=== PATIENT | male | born 1980 | race Caucasian/White ===

== ENCOUNTER 2017-02-10 20:23 | Emergency (ER) | payer MEDICAID ==
[2017-02-10 21:27] LABS: BASOPHIL % 0.9 % (0-2); PLATELET COUNT 146 x10^3mcL (130-400)
[2017-02-10 21:42] LABS: RED CELL DISTRIBUTION WIDTH 17.4 % (11.5-14.5)
[2017-02-10 21:55] LABS: ALBUMIN 3.8 g/dL (3.4-5.0); ALKALINE PHOSPHATASE 163 U/L (46-116); ALT/SGPT 93 U/L (16-63); AST/SGOT 137 U/L (15-37); BILIRUBIN TOTAL 0.38 mg/dL (0.20-1.00); CALCIUM 7.7 mg/dL (8.5-10.1); CHLORIDE SERUM 101 mmol/L (98-107); CREATININE SERUM 0.7 mg/dL (0.7-1.3); GFR1 > 60 mL/min; GLUCOSE SERUM 122 mg/dL (74-106); MAGNESIUM 2.2 mg/dL (1.8-2.4); SODIUM SERUM 141 mmol/L (136-145); TOTAL PROTEIN, SERUM 8.2 g/dL (6.4-8.2)
[2017-02-11 00:16] VITALS: BP 161/101
== END 2017-02-11 00:16 | disposition home or self-care (01) ==
LOC: ED 20:23
PROVIDERS: Emergency Medicine
DX: F10.129 Alcohol abuse with intoxication, unspecified (principal); R07.89 Other chest pain; R03.0 Elevated blood-pressure reading, without diagnosis of hypertension
CPT/HCPCS: 80307; 83880; G0480

== ENCOUNTER 2019-04-20 06:53 | Emergency (ER) | payer MEDICAID ==
[~2019-04-20] VITALS: Ht 165.1 cm; Wt 107.5 kg
[2019-04-20 06:57] VITALS: Ht 165.1 cm; Wt 107.5 kg
[2019-04-20 07:31] LABS: BASOPHIL % 0.8 % (0-2); PLATELET COUNT 232 x10^3mcL (130-400)
[2019-04-20 07:33] LABS: RED CELL DISTRIBUTION WIDTH 14.6 % (11.5-14.5)
[2019-04-20 07:57] LABS: CALCIUM 8.1 mg/dL (8.5-10.1); CARBON DIOXIDE 26.3 mmol/L (21-32); CHLORIDE SERUM 105 mmol/L (98-107); CREATININE SERUM 0.8 mg/dL (0.7-1.3); GFR1 > 60 mL/min; GLUCOSE SERUM 219 mg/dL (74-106); POTASSIUM SERUM 3.4 mmol/L (3.5-5.1); SODIUM SERUM 142 mmol/L (136-145)
[2019-04-20 08:02] LABS: ALKALINE PHOSPHATASE 128 U/L (46-116); ALT/SGPT 28 U/L (16-63); AST/SGOT 26 U/L (15-37); BILIRUBIN TOTAL 0.35 mg/dL (0.20-1.00); TOTAL PROTEIN, SERUM 7.7 g/dL (6.4-8.2)
[2019-04-20 08:30] LABS: ALBUMIN 3.1 g/dL (3.4-5.0)
[2019-04-20 08:42] VITALS: BP 139/93
== END 2019-04-20 09:55 | disposition home or self-care (01) ==
LOC: ED 06:53
PROVIDERS: Emergency Medicine
DX: T63.011A Toxic effect of rattlesnake venom, accidental (unintentional), initial encounter (principal); Y92.89 Other specified places as the place of occurrence of the external cause
CPT/HCPCS: 36415; 90715; J7030